=== PATIENT | female | born 1950 | race Caucasian/White ===

== ENCOUNTER → 2017-07-25 | Outpatient (CLI) | payer OTHER ==
[~2017-07-25] MED LIST: ALEN70TA2 PO; ASPI81TA28 PO; BIOT1CAP4 PO; BUPR-79 PO; CALC600T9 PO; CHOL2000 PO; CRANPOW PO; METO5TAB2 PO; MIRT15TA2 PO; PRVC/10 PO; RANI300C PO; SERT50TA PO; TOPI100T45 PO
--- NOTE | 2017-07-26 14:10 | MAMMOGRAPHY REPORT ---
BILATERAL DIGITAL SCREENING MAMMOGRAM WITH CAD: 07/25/2017 CLINICAL HISTORY: Patient presents for routine screening. S/P bilateral augmentation. TECHNIQUE: Bilateral CC and MLO views of the breasts with and without implant displacement views were obtained. Current study was also evaluated with a Computer Aided Detection (CAD) system. COMPARISON: Comparison is made to exams dated: 10/14/2015 mammogram, 10/09/2014 mammogram, 10/07/2013 mamm ogram, 10/05/2012 mammogram, 03/14/2011 mammogram, and 02/09/2010 mammogram - [facility]. BREAST COMPOSITION: There are scattered areas of fibroglandular density in both breasts. FINDINGS: Bilateral subglandular silicone implants are again identified. Is similar in appearance to prior mammograms, with evidence of macro lobulated contour along the medial and inferior aspect of t he implants. There is also coarse calcification along the implant capsule of the right greater than left breast. No suspicious breast mass, architectural distortion or cluster of microcalcifications i s seen. IMPRESSION: ACR BI-RADS CATEGORY 1: NEGATIVE 1. There is no mammographic evidence of malignancy. A 1 year screening mammogram is recommended. 2. Macrolobulated contour of bilateral subglandular silicone implants. An MRI would be the test of choice for assessing implant integrity, if clinically indicated. The patient will receive written notification of the results. Approximately 10% of breast cancers are not detected with mammography. A negative mammographic report should not delay biopsy if a clinically suggestive mass is present. Reema Beckham M.D. ay/:07/25/2017 14:21:18 Desktop Support Specialist: Denise KERR(Mu)(M), [facility] letter sent: Normal 1/2 BI-RADS Code: ACR BI-RADS Category 1: Negative
== END | disposition home or self-care (01) ==
LOC: C.MAMM 13:16
PROVIDERS: ATTEND Internal Medicine
DX: Z12.31 Encounter for screening mammogram for malignant neoplasm of breast (principal)

== ENCOUNTER → 2018-03-28 | Outpatient (CLI) | payer OTHER ==
--- NOTE | 2018-03-29 06:35 | PAP/PSG TECHNICIAN REPORT ---
[facility] [employer] Polysomnogram Report Study name: None Report date: 03/29/2018 Study date: 03/28/2018 Referring Physician: Dr. Patricia Sultana Name: ANA MISTRY Interpreting Physician: Zack Rawls M.D. Date of : 1950 Automotive Sales Professional: Genet Mckoy RPSGT. Sex: Female Age: 67 Study Type: PSG Weight: 132 lbs 13 in Height: 67 years, Height 5' 1.5" Neck Circum: BMI: 24.53 Medications: ADDERALL 10 MG, PRAVASTATIN 20 MG, BIOTIN, BUPROPION 150 MG, CALCIUM 600 MG, SERTRALINE 100 MG, METOCLOPRAMIDE 10 MG, RANITIDINE 300 MG, FOSAMAX 70 MG, ASPIRIN 81 MG, VIT D 2000 UNIT, TOPIRAMATE, CRANBERRY 475 MG Patient History 67 yr-old female here for a baseline/modified split study (CPAP to be introduced if AHI exceeds 15). She has a history of excessive daytime sleepiness, snoring, and pain in her legs at night. Her [place] scale is 16. The test was started on room air. ETCO2 testing was not utilized during this study. Room 1 Parameters Monitored NPSG: E1-M2, E2-M1, Fp1-M2, Fp2-M1, F3-M2, F4-M2, F4-M1, C3-M2, C4-M2, C4-M1, O1-M2, O2-M2, O2-M1, T3-M2, T4-M1, P3-M2, P4-M1, CHIN1, CHIN2, HR, EKG, Legs, PFLOW, SNOR, FLOW, CFLOW, Tidal Volume, THOR, ABDO, SpO2, PLTH, CPRESS, ETCO2 Wave, ETCO2, pH Sleep Architecture Sleep Stages Time at Lights Off 10:15:21 PM STAGES Time (min.) TST (%) Time at Lights On 5:30:51 AM Wake 87.0 -- Total Recording Time (TRT) 435.50 min. N1 50.5 14 Total Sleep Period (TSP) 398.5 min. N2 221.0 63 Total Sleep Time (TST) 348.5min. N3 11.0 3 Awake Time 87.0 min. REM 66.0 19 Wake after Sleep Onset 50.0 min. Sleep Efficiency (SE) 80 % Sleep Onset Latency (AYSE) 37.0 min. Number of Stage 1 Shifts None Awakenings 27 Stage Changes 151 Number of REM periods 12 REM 66.0 19 REM Latency 188.0 min. NREM 282.5 81 Body Position Analysis Supine Right Left Side Prone Vertical Total Sleep Time (min.) 79.1 84.5 229.5 314.01 0.0 0.0 Total Sleep Time (%) 10% 24% 66% 90 0% N/A% Total Sleep Time REM (min.) 23.5 28.5 14.0 None 0.0 0.0 Total Sleep Time NREM (min.) 11.0 56.0 215.5 None 0.0 0.0 Intermittent Wake (min.) 44.6 3.3 39.1 None 0.0 0.0 Total Sleep Period (%) 11% None None None None None Arousals Myoclonus (PLM) * Events Count Index Events Count Index Spontaneous 55 9 Events Awake (PLMW) 44 30.3 Respiratory 9 1.7 Events Asleep w/ Arousal (PLMA) 13 2.2 PLM 13 2 Events Asleep w/o Arousal (PLMS) 104 17.9 Snoring 9 2 Total Asleep 117 20.1 Total 86 15 Total 161 22 Respiratory Analysis * CA OA MA CH H RERA Total Count 1 0 0 0 12 8 13 Index 0.2 0.0 0.0 0 2.1 1 3.6 Mean Duration 14.1 0.0 0.0 0.00 20.3 19.0 19.5 Longest Duration 14.1 0.0 0.0 0.00 0.0 22.6 28.4 Respiratory Event Summary Total Supine ~Supine Right Left Prone REM NREM Apneas Count 1 0 1 0 1 N/A 0 1 Index 0.2 0 0 0.0 0.3 N/A 0 0 Hypopneas (4% Desat) Count 12 10 2 1 1 N/A 9 3 Index 2.1 17.4 0 0.7 0.3 N/A 8.2 0.6 Apneas & All Hypopneas Count 13 10 3 1 2 N/A 9 4 Index 2.2 17 1 1 1 N/A 8.2 0.8 Respiratory Events (Lathe Spotter+All Hyp+RERA) Count 13 11 10 1 9 N/A 9 4 Index 3.6 19 2 0.7 2.4 N/A 11.8 1.7 Respiratory Related Arousal Count 9 11 8 0 8 N/A 5 5 Index 1.7 3 2 0 2 N/A 5 1 Snoring Analysis Supine Right Left Prone REM NREM Total Snore duration 7.3 min Snores count 40 18 335 N/A 82 311 393 Snore mean duration 1.1 Sec Snores index 70 13 88 N/A 74.5 66.1 67.7 TST with snoring (%) 2.1% SpO2 Analysis Total REM NREM Awake <50% 0.0 min. 0.0 min. 0.0 min. 0.0 min. 51 - 60% 0.0 min. 0.0 min. 0.0 min. 0.0 min. 61 - 70% 0.0 min. 0.0 min. 0.0 min. 0.0 min. 71 - 80% 0.0 min. 0.0 min. 0.0 min. 0.0 min. 81 - 90% 23.9 min. 13.9 min. 4.9 min. 5.0 min. 91 - 100% 402.0 min. 51.2 min. 277.5 min. 73.3 min. Average 93 92 93 93 Minimum SpO2 81 86 88 81 Desaturation Event Index 5.4 14.5 3.0 7.6 # Desat. Events below 89% 15 11 1 3 Time(%) with Saturation below 89% 1.1 0.9 0.1 0.2 Time(min.) with Saturation below 89% 4.7 3.7 0.3 0.7 Heart Rate Analysis End Tidal CO2 Analysis Min (bpm) Max (bpm) Average (bpm) TSP (mins) % of TSP Awake 59 84 70 Above 55 mmHg 0.0 0.0 NREM 60 79 66 50-55 mmHg 175.5 50.4 REM 60 127 67 45-50 mmHg 173.0 49.6 Overall 60 127 66 40-45 mmHg 0.0 0.0 35-40 mmHg 0.0 0.0 30-35 mmHg 0.0 0.0 Average ETCO2 0.0 Supplemental O2 Values Minimum O2 level: None Value Start Time End Time Autom[employer] Sales Professional Comments Ms. Mistry slept in the right, left, and supine positions. No cardiac arrhythmias were noted. PLMs were noted. No bruxism noted. Snoring was noted and scored as a 1 on a scale of 1 through 5. (0=no snoring, 5=snoring loud enough to be heard through a closed door or down the [address]mons way) She did not meet specific Split-Night criteria during the diagnostic portion of this study. She awoke to use the restroom one time during the night. Ms. Mistry stated that she slept a little better than usual. The final report will be interpreted and signed by a sleep physician. The completed physician report will then be placed in the patient medical record. Therapy (cm H2O) 0 TIB (min.) 435.5 TST (min.) 348.5 Sleep Onset (min.) 37.0 REM Onset From Sleep (min.) 188.0 Sleep Efficiency % 80 Wakefulness (%) 20 Wakefulness (min.) 87.0 NREM 1 (%) 14 NREM 1 (min.) 50.5 NREM 2 (%) 63 NREM 2 (min.) 221.0 NREM 3 (%) 3 NREM 3 (min.) 11.0 REM (%) 19 REM (min.) 66.0 # Arousals 86 Arousal Index 15 # Snore 393 Snore Index 67.7 AHI 2.2 AHI Supine 17 AHI Non-Supine 1 NREM AHI 0.8 REM AHI 8.2 RDI 3.6 # Obstructive Apnea 0 # Central Apnea 1 # Mixed Apnea 0 # Hypopneas 12 RERAs 8 Total Respiratory Events 21 Time Below SpO2 89% (min.) 4.0 Mean NREM SpO2 (%) 93 Mean REM SpO2 (%) 92 Mean Sleep SpO2 (%) 93 Min NREM SpO2 (%) 88 Min REM SpO2 (%) 86 Position Supine (min.) 79.1 Position Non-supine (min.) 314.0 LM Index Sleep 20.1 LM Index NREM 14.2 LM Index REM 45.5 Mean Heart Rate (bpm) 66 Min Heart Rate (bpm) 60
--- NOTE | 2018-03-31 16:53 | POLYSOMNOGRAPH REPORT ---
CLINICAL DATA: A 67-year-old female with BMI of 24.[address] Patricia Sultana with a history of excessive daytime sleepiness, snoring, and leg pain. Her [place] sleepiness score was 16/24. SLEEP ARCHITECTURE: Total sleep period was 398.5 minutes. Total sleep time was 348.5 minutes divided between 282.5 minutes of non-REM sleep and 66 minutes of REM sleep. Sleep latency was delayed at 37 minutes. REM latency was delayed at 188 minutes. Sleep efficiency was 80%. Wake after sleep onset was 50 minutes. Sleep consisted of stage N1 14%, stage N2 63%, stage N3 3%, and REM 19%. AROUSAL DATA: 86 arousals were recorded for an index of 15 per hour. PLM DATA: Very mildly elevated limb movements during sleep were noted. There were 117 limb movements during sleep recorded for an index of 20 per hour with arousal index of 2.2 per hour. RESPIRATORY DATA: There was no evidence of clinically significant sleep apnea seen. The AHI was 2.2. The RDI was 3.6. There was 1 central apneic episode, 14.1 seconds in duration. There were 12 hypopneic episodes with mean duration of 20.3 seconds. There were 8 RERAs. The longest RERA was 22.6 seconds. OXIMETRY DATA: No significant hypoxemia was seen. Oxygen jessie was 86% during REM. Mean saturation was 92%. EKG: Heart rates ranged from 60-127 beats per minute. No arrhythmias were noted. CONTRIBUTION SOLICITOR'S COMMENTS: The patient slept in the right, left, and supine position. Snoring was mild, rated 1 on a scale of 1-5. The patient awoke once to use the restroom during the night. She stated that she slept better than usual. IMPRESSION: 1. No evidence of clinically significant sleep apnea/hypopnea or sustained nocturnal hypoxemia. 2. Very mildly elevated limb movements during sleep with a PLM index of 20 per hour with an arousal index of 2 per hour. RECOMMENDATIONS: The patient should continue to practice good sleep hygiene. There is no evidence to suggest that CPAP would be of benefit. Treatment for PLMD may be of benefit. Clinical correlation is needed. MTDD
== END | disposition home or self-care (01) ==
LOC: C.NEUR 20:00
PROVIDERS: ATTEND Student in an Organized Health Care Education/Training Program
DX: G47.19 Other hypersomnia (principal); R06.83 Snoring